=== PATIENT | female | born 1980 | race Caucasian/White ===

== ENCOUNTER 2017-02-13 23:27 | Emergency (ER) | payer OTHER ==
[2017-02-13] MEDS ORDERED: 0.9 % SODIUM CHLORIDE 1,000 ML BAG IV ONE (23:35)
[2017-02-13] MEDS ORDERED: ONDANSETRON HCL IV 4 MG/2 ML VIAL IVP ONE (23:35)
--- NOTE | 2017-02-13 23:41 | Emergency Department Record ---
History of Present Illness - General Chief complaint: Vomiting Stated complaint: VOMITING,THINKS SHES Source: Patient Mode of Arrival: Ambulatory Limitations: No limitations - History of Present Illness Initial comments: 36 yo female presents with nausea and vomiting intermittently for 2 weeks. She is per a home test. She has had two live births in the past. She reports one required a ureteral stent for swelling of a kidney. She had early nausea and vomiting with prior pregnancies as well. She does not know how far along she is at this time. Her prior OB was Dr Espinosa. At times with heavy vomiting she has seen streaks of blood. MD complaint: Nausea, Vomiting -: Week(s) (2) Description of Vomiting: Watery Associated Abdominal Pain: No Radiation: None Severity: Moderate Consistency: Intermittent Improves with: None Worsens with: Eating Context: Other () Associated Symptoms: Denies other symptoms - Related Data Home Medications Medication Instructions Recorded Confirmed Last Taken Bupropion HCl [Bupropion Xl] 150 mg PO BID 02/13/17 02/13/17 02/13/17 Dextroamphetamine/Amphetamine 10 mg PO 1400 02/13/17 02/13/17 02/13/17 [Dextroamp-Amphet ER 10 mg Cap] Dextroamphetamine/Amphetamine 20 mg PO QAM 02/13/17 02/13/17 02/13/17 [Dextroamp-Amphet ER 10 mg Cap] Previous Rx's Medication Instructions Recorded Ondansetron [Zofran Odt] 4 mg PO Q8H #10 tab.rapdis 02/14/17 Ranitidine HCl [Zantac] 150 mg PO DAILY #30 tab 02/14/17 Allergies Allergy/AdvReac Type Severity Reaction Status Date / Time No Known Drug Allergies Allergy Verified 10/17/13 12:28 Review of Systems Constitutional: Denies: Chills, Fever, Malaise, Weakness Eyes: Denies: Eye discharge ENT: Denies: Congestion, Throat pain Respiratory: Denies: Cough Cardiovascular: Denies: Chest pain, Syncope Endocrine: Denies: Fatigue Gastrointestinal: Reports: Hematemesis, Nausea, Vomiting. Denies: Abdominal pain, Diarrhea, Hematochezia, Melena Genitourinary: Denies: Dysuria Musculoskeletal: Denies: Arthralgia, Back pain, Neck pain Skin: Denies: Bruising, Change in color, Rash Neurological: Denies: Headache, Numbness, Weakness Psychiatric: Denies: Anxiety Hematological/Lymphatic: Denies: Blood Clots, Easy bleeding, Easy bruising, Swollen glands Past Medical History - SOCIAL HISTORY Smoking Status: Never smoker - RESPIRATORY Hx Respiratory Disorders: No - CARDIOVASCULAR Hx Cardio Disorders: No - NEURO Hx Neuro Disorders: Yes Comment:: Narcolepsy with out cataplexy - GI Hx GI Disorders: No - Hx Genitourinary Disorders: Yes Hx Kidney Stones: Yes - ENDOCRINE Hx Endocrine Disorders: No - MUSCULOSKELETAL Hx Musculoskeletal Disorders: No - PSYCH Hx Psych Problems: Yes - HEMATOLOGY/ONCOLOGY Hx Hematology/Oncology Disorders: No Family Medical History Hx Cancer: Father, Grandparents Hx Depression: Mother Physical Exam - General General Appearance: Alert, Oriented x3, Cooperative, No acute distress Limitations: No limitations - Head Head exam: Normal inspection - Eye Eye exam: Normal appearance. negative: Conjunctival injection - ENT ENT exam: Normal exam, Mucous membranes moist Ear exam: Normal external inspection Nasal Exam: Normal inspection Mouth exam: Normal external inspection - Neck Neck exam: Normal inspection, Full ROM. negative: Tenderness - Respiratory Respiratory exam: Normal lung sounds bilaterally. negative: Respiratory distress - Cardiovascular Cardiovascular Exam: Regular rate, Normal rhythm, Normal heart sounds - GI/Abdominal GI/Abdominal exam: Soft. negative: Tenderness - Rectal Rectal exam: Deferred - exam: Deferred - Extremities Extremities exam: Normal inspection, Full ROM, Normal capillary refill. negative: Tenderness - Back Back exam: Reports: Normal inspection, Full ROM. Denies: CVA tenderness (R), CVA tenderness (L), Muscle spasm, Tenderness - Neurological Neurological exam: Alert, Normal gait, Oriented X3 - Psychiatric Psychiatric exam: Normal affect, Normal mood - Skin Skin exam: Dry, Intact, Normal color, Warm Course - Reevaluation(s) Reevaluation #1: 02/14/17 00:06 The CBC and the UA were reviewed. No acute changes. 02/14/17 00:27 [place] [address] Bedside US was used to identified a single IUP. heartbeat identified. The patient is doing well. She has an appointment with her PCP Sunday for very close follow up 02/14/17 00:39 She will be placed on Zantac which is safe in She was instructed to discuss her medications that she is currently on with her PCP and Neurologist tomorrow. Medical Decision Making - Lab Data Result diagrams: 02/13/17 23:41 02/13/17 23:41 Disposition Disposition: Discharge Clinical Impression: Hyperemesis gravidarum Disposition: Home, Self-Care Condition: (1) Good Instructions: Hyperemesis Gravidarum (ED) Additional Instructions: Call your doctor tomorrow for close follow up Discuss your current medications with your doctor tomorrow and your neurologist Prescriptions: Ondansetron [Zofran Odt] 4 mg PO Q8H #10 tab.rapdis Ranitidine HCl [Zantac] 150 mg PO DAILY #30 tab Forms: Patient Portal Access Time of Disposition: 00:41 Quality - Quality Measures Quality Measures: N/A - Blood Pressure Screening Does Patient Have Any of the Following: No Blood Pressure Classification: Pre-Hypertensive BP Reading Systolic Measurement: 125 Diastolic Measurement: 88 Screening for High Blood Pressure: < Pre-Hypertensive BP, F/U Documented > [ G8950] Pre-Hypertensive Follow-up Interventions: Referral to alternative/primary care provider.
[2017-02-13 23:52] LABS: BASO % 0.2 % (0-6); EOS % 1.2 % (0-6); GRAN % 63.6 % (47-80); LYMPH % 26.5 % (16-45); MEAN CELL VOLUME 84.7 fl (81-97); MEAN CORPUSCULAR HEMOGLOBIN 29.7 pg (27-33); MEAN CORPUSCULAR HGB CONC 35.1 g/dl (32-36); MEAN PLATELET VOLUME 10.7 fl (7.4-10.4); MONO % 8.5 % (0-9); PLATELET COUNT 238 K/uL (130-400); RED BLOOD COUNT 4.37 M/uL (3.80-5.40); RED CELL DISTRIBUTION WIDTH 12.5 % (11.5-14.5); URINE APPEARANCE CLEAR; URINE BILIRUBIN NEGATIVE (NEGATIVE); URINE BLOOD NEGATIVE (NEGATIVE); URINE COLOR YELLOW; URINE GLUCOSE (UA) NEGATIVE (NEGATIVE); URINE KETONE NEGATIVE (NEGATIVE); URINE LEUKOCYTE ESTERASE NEGATIVE (NEGATIVE); URINE NITRITE NEGATIVE (NEGATIVE); URINE PROTEIN NEGATIVE (NEGATIVE); URINE UROBILINOGEN 0.2 E.U./dL (0.20 - 1.00); WHITE BLOOD COUNT W/O DIFF 10.3 K/uL (4.2-12.2)
[2017-02-14] MEDS ORDERED: RANITIDINE HCL 150 MG TABLET PO STA (00:09)
[2017-02-14 00:14] LABS: BLOOD UREA NITROGEN 15 mg/dL (6-20); CREATININE 0.6 mg/dL (0.5-0.9); EST GLOMERULAR FILTRATION RATE > 60 mL/min
[2017-02-14 00:15] LABS: TOTAL PROTEIN 7.4 g/dL (6.6-8.7)
[2017-02-14 00:17] LABS: GLUCOSE,RANDOM 105 mg/dL (74-109)
[2017-02-14 00:19] LABS: ALB/GLOB RATIO 1.6 (1.1-1.8); ALBUMIN 4.5 g/dL (4.0-5.0); ALT/SGPT 13 U/L (<33); AST/SGOT 14 U/L (10.0-35.0); TOTAL B-hCG 61363 mIU/mL
[2017-02-14 00:20] LABS: ALKALINE PHOSPHATASE 50 U/L (35-104)
== END 2017-02-14 00:48 | disposition home or self-care (01) ==
LOC: ER 23:27
DX: O21.0 Mild hyperemesis gravidarum (principal); Z3A.09 9 weeks gestation of pregnancy
CPT/HCPCS: 99284 ×2; 96374; 96361; 85025; 84702; 80053; 81003; J2405; J7030

== ENCOUNTER 2017-04-04 19:35 | Emergency (ER) | payer OTHER ==
--- NOTE | 2017-04-04 19:59 | Emergency Department Record ---
History of Present Illness - General Chief complaint: Flank Pain Stated complaint: BACK PAIN Time Seen by Provider: 04/04/17 19:45 Source: Patient Mode of Arrival: Ambulatory Limitations: No limitations - History of Present Illness Initial comments: The patient is here due to sharp R flank pain intermittently for the last 2 days. The pain is sometimes worse with movement and does not radiate to the abdomen. She denies any abdominal pain, nausea, vomiting, diarrhea, or any vaginal bleeding. The patient is 16 weeks by dates but has not had an US. Her OB is at [facility] [place]. MD Complaint: Other Onset/Timin -: Days(s) Radiation: R flank Severity: Mild Severity scale (1-10): 7 Quality: Other Consistency: Intermittent Worsens with: Movement LMP Date: 12/01/16 Gestational Age (wks) based on LMP: 17 Associated Symptoms: Denies other symptoms, Nausea/vomiting - Related Data Home Medications Medication Instructions Recorded Confirmed Last Taken Vit Calc,Iron,Folic 1 each PO DAILY 04/04/17 04/04/17 Unknown [ Vitamins] Previous Rx's Medication Instructions Recorded Ondansetron [Zofran Odt] 4 mg PO Q8H #10 tab.rapdis 02/14/17 Ranitidine HCl [Zantac] 150 mg PO DAILY #30 tab 02/14/17 Allergies Allergy/AdvReac Type Severity Reaction Status Date / Time No Known Drug Allergies Allergy Verified 10/17/13 12:28 Travel Screening - Travel/Exposure Within Last 30 Days Have you traveled within the last 30 days?: No - Travel/Exposure Within Last Year Have you traveled outside the [place] in the last year?: No - Additonal Travel Details Have you been exposed to anyone with a communicable illness?: No - Travel Symptoms Symptom Screening: None Review of Systems Constitutional: Denies: Chills, Fever Eyes: Denies: Eye discharge ENT: Denies: Congestion Respiratory: Denies: Cough, Dyspnea Past Medical History - SOCIAL HISTORY Smoking Status: Never smoker Alcohol Use: None Drug Use: None - RESPIRATORY Hx Respiratory Disorders: No - CARDIOVASCULAR Hx Cardio Disorders: No - NEURO Hx Neuro Disorders: Yes Comment:: Narcolepsy with out cataplexy - GI Hx GI Disorders: No - Hx Genitourinary Disorders: Yes Hx Kidney Stones: Yes - ENDOCRINE Hx Endocrine Disorders: No - MUSCULOSKELETAL Hx Musculoskeletal Disorders: No - PSYCH Hx Psych Problems: Yes - HEMATOLOGY/ONCOLOGY Hx Hematology/Oncology Disorders: No Family Medical History Any Significant Family History?: Yes Hx Cancer: Father, Grandparents Hx Depression: Mother Physical Exam - General General Appearance: Alert, Oriented x3, Cooperative, No acute distress - Head Head exam: Atraumatic, Normocephalic, Normal inspection - Eye Eye exam: Normal appearance, PERRL - Neck Neck exam: Normal inspection, Full ROM. negative: Tenderness - Respiratory Respiratory exam: Normal lung sounds bilaterally. negative: Respiratory distress - Cardiovascular Cardiovascular Exam: Regular rate, Normal rhythm, Normal heart sounds - GI/Abdominal GI/Abdominal exam: Soft, Normal bowel sounds. negative: Rebound, Rigid, Tenderness (The abdomen is very soft and nontender.) - Extremities Extremities exam: Normal inspection, Full ROM, Normal capillary refill. negative: Tenderness - Back Back exam: Reports: Normal inspection, Paraspinal tenderness (There is mild tenderness to the R parapspinal area over L 1-3. ). Denies: Vertebral tenderness - Neurological Neurological exam: Alert. negative: Motor sensory deficit Course Vital Signs 04/04/17 19:38 Temperature 98.3 F Pulse Rate 79 Respiratory 20 Rate Blood Pressure 119/81 Pulse Ox 98 - Reevaluation(s) Reevaluation #1: The patient is doing well at this time but is having intermittent R flank pain. I did discuss the need for an US with the patient and the fact we are not able to perform that test. Due to that problem I did discuss the case with Dr. Cadena in the ER at [facility] [place] and she does accept the patient in an ER to ER transfer. The patient understands the plan and will proceed to [facility] [place]. 04/04/17 20:33 Medical Decision Making - Lab Data Result diagrams: 04/04/17 19:57 04/04/17 19:57 Disposition Disposition: Transfer Clinical Impression: Flank pain, acute Disposition: Acute Care Hospital Transfer Transfer To: [facility] [place] Reason For Transfer: US Accepting Physician: Surinder Time Discussed w/Accepting Physician: 21:27 Condition: (2) Stable Instructions: Flank Pain (ED) Additional Instructions: Please proceed directly to the [facility] [place] for further evaluation and testing. Forms: Patient Portal Access Time of Disposition: 20:35 Quality - Quality Measures Quality Measures: N/A - Blood Pressure Screening View Details: Yes Does Patient Have Any of the Following: No Blood Pressure Classification: Pre-Hypertensive BP Reading Systolic Measurement: 119 Diastolic Measurement: 81 Screening for High Blood Pressure: < Pre-Hypertensive BP, F/U Documented > [ G8950] Pre-Hypertensive Follow-up Interventions: Referral to alternative/primary care provider.
[2017-04-04 20:04] LABS: BASO % 0.2 % (0-6); EOS % 1.9 % (0-6); GRAN % 51.9 % (47-80); HEMATOCRIT 33.9 % (35.0-47.0); HEMOGLOBIN 11.7 gm/dl (11.6-16.0); MEAN CELL VOLUME 85.6 fl (81-97); MEAN CORPUSCULAR HEMOGLOBIN 29.5 pg (27-33); MEAN CORPUSCULAR HGB CONC 34.5 g/dl (32-36); MEAN PLATELET VOLUME 10.4 fl (7.4-10.4); PLATELET COUNT 174 K/uL (130-400); RED BLOOD COUNT 3.96 M/uL (3.80-5.40); RED CELL DISTRIBUTION WIDTH 12.7 % (11.5-14.5); URINE APPEARANCE CLEAR; URINE BILIRUBIN NEGATIVE (NEGATIVE); URINE BLOOD NEGATIVE (NEGATIVE); URINE COLOR YELLOW; URINE GLUCOSE (UA) NEGATIVE (NEGATIVE); URINE KETONE NEGATIVE (NEGATIVE); URINE LEUKOCYTE ESTERASE NEGATIVE (NEGATIVE); URINE NITRITE NEGATIVE (NEGATIVE); URINE PROTEIN NEGATIVE (NEGATIVE); URINE UROBILINOGEN 0.2 E.U./dL (0.20 - 1.00); WHITE BLOOD COUNT W/O DIFF 6.4 K/uL (4.2-12.2)
[2017-04-04 20:16] LABS: BLOOD UREA NITROGEN 10 mg/dL (6-20); CREATININE 0.5 mg/dL (0.5-0.9); EST GLOMERULAR FILTRATION RATE > 60 mL/min
[2017-04-04 20:19] LABS: GLUCOSE,RANDOM 99 mg/dL (74-109)
== END 2017-04-04 20:38 | disposition short-term general hospital (02) ==
LOC: ER 19:35
DX: O99.89 Other specified diseases and conditions complicating pregnancy, childbirth and the puerperium (principal); R10.31 Right lower quadrant pain; M54.5 Low back pain; R11.2 Nausea with vomiting, unspecified; Z3A.16 16 weeks gestation of pregnancy
CPT/HCPCS: 80048; 81003; 84702; 85025; 99284

== ENCOUNTER 2018-01-17 07:08 | Day surgery (SDC) | payer OTHER ==
[~2018-01-17 07:08] MED LIST: ACETAMINOPHEN 1,000 MG/100 ML BTL IV ONE
[2018-01-17] MEDS ORDERED: PROPOFOL 10 MG/ML VIAL IV ONE (07:09)
[2018-01-17] MEDS ORDERED: FENTANYL PF 100MCG/2ML VIAL IV ONE (07:09)
[2018-01-17] MEDS ORDERED: LIDOCAINE 2% MDV (20MG/ML) 20ML VIAL IV ONE (07:09)
[2018-01-17] MEDS ORDERED: MIDAZOLAM HCL 2MG/2ML VIAL IV ONE (07:09)
[2018-01-17] MEDS ORDERED: LIDOCAINE 1% MDV (10MG/ML) 20ML VIAL SQ ONE (07:09)
--- NOTE | 2018-01-18 08:00 | Operative Note ---
DATE OF SURGERY: 01/17/2018 Surgeon: Kit Brandon DO PREOPERATIVE DIAGNOSIS: Trigger thumb, right thumb. POSTOPERATIVE DIAGNOSIS: Trigger thumb, right thumb. OPERATION: Tenotomy A1 gal, right thumb, using 3.5 loop magnification. DESCRIPTION OF PROCEDURE: This 37-year-old female was taken to the operating room and placed in the supine position on the operating room table. Assisted local anesthesia was used, 1% Xylocaine plain was used as a local anesthetic. After satisfactory anesthetic, a transverse incision was made in the flexor crease of the MCP joint of the right thumb. Dissection carried down through the skin and subcutaneous tissue. Hemostasis obtained with the electrocautery. The radial digital nerve was identified, gently retracted, and the proximal edge of the A1 gal was easily identified. This was then incised from proximal to distal under direct vision. A nodularity in the FPL was noted but the tendon itself was otherwise unremarkable. No breaks in the continuity of the tendon were identified. Once the tendon had been completely released, there was no catching or snapping of the tendon, and the wound was irrigated with lactated Ringer's solution. The wound closed with interrupted 6-0 nylon suture. Sterile dressings were applied and the patient taken to the recovery room in satisfactory condition. GROSS PATHOLOGY: Some nodularity in the FPL of the right thumb catching on the A1 gal which was incised as described above. CC: Nia ALMEIDA
== END 2018-01-17 09:45 | disposition home or self-care (01) ==
LOC: SUR 07:08
PROVIDERS: ATTEND Orthopaedic Surgery
DX: M65.311 Trigger thumb, right thumb (principal); G47.419 Narcolepsy without cataplexy
CPT/HCPCS: 26055; 01810; 81025; J3010

== ENCOUNTER 2018-12-05 20:38 | Emergency (ER) | payer OTHER ==
--- NOTE | 2018-12-05 20:47 | Emergency Department Record ---
History of Present Illness - General Chief Complaint: Chest Pain Stated Complaint: CHEST PAINS Time Seen by Provider: 12/05/18 20:40 Source: Patient Mode of Arrival: Ambulatory Limitations: No limitations - History of Present Illness Initial Comments: 38 yo female presents to ED for evaluation of "sharp" chest pain symptoms that began this morning upon getting her child ready for school. Patient reports (2) other episodes throughout the day, non-exertional in nature, and lasting approximately 10 minutes in duration. Patient denies calf pain/swelling, history of DVT or recent immobilization. Patient denies fever, chills, or cough symptoms. Patient denies health problems at her baseline. MD Complaint: Chest pain Onset/Timin -: Hour(s) Onset: Awoke with symptoms Pain Location: Substernal Pain Radiation: None Severity: Mild Severity scale (1-10): 1 Quality: Sharp Consistency: Intermittent, Now resolved Improves With: Nothing Worsens With: Nothing Treatments Prior to Arrival: None - Related Data Home Medications Medication Instructions Recorded Confirmed Last Taken Methylphenidate HCl [Concerta] 36 mg PO DAILY 12/05/18 12/05/18 12/05/18 Methylphenidate HCl [Ritalin] 1 tab PO DAILY 12/05/18 12/05/18 12/05/18 Allergies Allergy/AdvReac Type Severity Reaction Status Date / Time No Known Drug Allergies Allergy Verified 10/17/13 12:28 Travel Screening - Travel/Exposure Within Last 30 Days Have you traveled within the last 30 days?: No - Travel/Exposure Within Last Year Have you traveled outside the [place] in the last year?: No - Additonal Travel Details Have you been exposed to anyone with a communicable illness?: No - Travel Symptoms Symptom Screening: None Review of Systems Constitutional: Denies: Chills, Fever, Malaise, Night sweats Eyes: Denies: Eye discharge, Eye pain ENT: Denies: Congestion, Ear pain, Epistaxis Respiratory: Denies: Cough, Dyspnea Cardiovascular: Reports: Chest pain. Denies: Dyspnea on exertion, Edema, Palpitations Endocrine: Denies: Fatigue, Heat or cold intolerance Gastrointestinal: Denies: Abdominal pain, Nausea, Vomiting Genitourinary: Denies: Incontinence, Retention Musculoskeletal: Denies: Arthralgia, Back pain Skin: Denies: Bruising, Change in color Neurological: Denies: Abnormal gait, Confusion, Headache Psychiatric: Denies: Anxiety Hematological/Lymphatic: Denies: Anemia, Blood Clots Past Medical History - SOCIAL HISTORY Smoking Status: Never smoker Alcohol Use: None Drug Use: None - RESPIRATORY Hx Respiratory Disorders: No - CARDIOVASCULAR Hx Cardio Disorders: No - NEURO Hx Neuro Disorders: Yes Comment:: Narcolepsy with out cataplexy - GI Hx GI Disorders: No - Hx Genitourinary Disorders: Yes Hx Kidney Stones: Yes (hx lithotripsy 2011) Comment:: pt has 3 month old no period since - ENDOCRINE Hx Endocrine Disorders: No - MUSCULOSKELETAL Hx Musculoskeletal Disorders: Yes Hx Arthritis: Yes (left shoulder) Comment:: rt trigger thumb sticks - PSYCH Hx Psych Problems: No - HEMATOLOGY/ONCOLOGY Hx Hematology/Oncology Disorders: No Family Medical History Any Significant Family History?: Yes Hx Cancer: Father, Grandparents Hx Depression: Mother Hx Heart Disease: Father Physical Exam - General General Appearance: Alert, Oriented x3, Cooperative, Mild distress Limitations: No limitations - Head Head exam: Atraumatic, Normocephalic, Normal inspection Head exam detail: negative: Abrasion, Contusion, Orr's sign, General tenderness, Hematoma, Laceration - Eye Eye exam: Normal appearance. negative: Conjunctival injection, Periorbital swelling, Periorbital tenderness, Scleral icterus - ENT Ear exam: negative: Auricular hematoma, Auricular trauma Nasal Exam: negative: Active bleeding, Discharge, Dried blood, Foreign body Mouth exam: negative: Drooling, Laceration, Muffled voice, Tongue elevation - Neck Neck exam: Normal inspection. negative: Meningismus, Tenderness - Respiratory Respiratory exam: Normal lung sounds bilaterally. negative: Respiratory distress, Rhonchi, Stridor, Wheezes - Cardiovascular Cardiovascular Exam: Regular rate, Normal rhythm, Normal heart sounds - GI/Abdominal GI/Abdominal exam: Soft. negative: Distended, Rebound, Rigid, Tenderness - Rectal Rectal exam: Deferred - exam: Deferred - Extremities Extremities exam: Normal inspection. negative: Pedal edema, Tenderness - Back Back exam: Denies: CVA tenderness (R), CVA tenderness (L) - Neurological Neurological exam: Alert, Normal gait, Oriented X3 - Psychiatric Psychiatric exam: Normal affect, Normal mood - Skin Skin exam: Normal color. negative: Abrasion Type of lesion: negative: abrasion Course Vital Signs 12/05/18 20:39 Temperature 98.7 F Pulse Rate 67 Respiratory 18 Rate Blood Pressure 150/104 Pulse Ox 99 - Reevaluation(s) Reevaluation #1: 12/05/18 20:47 EKG: NSR 74 Normal axis, normal intervals No acute ST-T wave changes Reevaluation #2: 12/05/18 21:30 Laboratory studies were reviewed and appear grossly unremarkable for an acute process. The patient was deemed to be low-risk for cardiac disease based on the patients history and evaluation in the ED, HEART Score was applied and found to be 0. As a result, repeat Troponin in 3-hours appears appropriate and if negative for myocardial injury, the patient may be discharged home with appropriate outpatient follow-up for further evaluation. D-Dimer negative as well. CXR ordered for further evaluation. Reevaluation #3: 12/05/18 22:12 CXR: Negative 12/05/18 23:02 Patient was reassessed, updated on all results, and is resting comfortably at this time. Reevaluation #4: 12/06/18 00:24 Repeat Troponin is negative for myocardial injury. Patient was updated on all results, appears stable for discharge at this tgime. Medical Decision Making - Lab Data Result diagrams: 12/05/18 20:55 12/05/18 20:55 Disposition Disposition: Discharge Clinical Impression: Atypical chest pain Disposition: Home, Self-Care Condition: (2) Stable Instructions: Chest Pain (ED) Additional Instructions: Return to ED if your symptoms worsen or if you have any concerns. Follow-up with your family doctor in 3-5 days as directed. Forms: Patient Portal Access Time of Disposition: 00:25 Quality - Quality Measures Quality Measures: N/A - Blood Pressure Screening Does Patient Have Any of the Following: No Blood Pressure Classification: Hypertensive Reading Systolic Measurement: 150 Diastolic Measurement: 104 Screening for High Blood Pressure: < First Hypertensive BP, F/U Documented > [G8950] First Hypertensive Follow-up Interventions: Referral to alternative/primary care provider.
[2018-12-05 21:11] LABS: ABSOLUTE NEUTROPHIL COUNT 3.75; BASO % 0.3 % (0-6); GRAN % 53.1 % (47-80); HEMATOCRIT 38.7 % (35.0-47.0); HEMOGLOBIN 13.3 gm/dl (11.6-16.0); LYMPH % 38.4 % (16-45); MEAN CELL VOLUME 86.6 fl (81-97); MEAN CORPUSCULAR HEMOGLOBIN 29.8 pg (27-33); MEAN CORPUSCULAR HGB CONC 34.4 g/dl (32-36); MEAN PLATELET VOLUME 11.2 fl (7.4-10.4); MONO % 7.2 % (0-9); PLATELET COUNT 233 K/uL (130-400); RED BLOOD COUNT 4.47 M/uL (3.80-5.40); RED CELL DISTRIBUTION WIDTH 12.2 % (11.5-14.5); WHITE BLOOD COUNT W/O DIFF 7.1 K/uL (4.2-12.2)
[2018-12-05 21:18] LABS: BLOOD UREA NITROGEN 14 mg/dL (6-20); CREATININE 0.6 mg/dL (0.5-0.9); EST GLOMERULAR FILTRATION RATE > 60 mL/min
[2018-12-05 21:19] LABS: TOTAL PROTEIN 6.8 g/dL (6.6-8.7)
[2018-12-05 21:21] LABS: GLUCOSE,RANDOM 126 mg/dL (74-109)
[2018-12-05 21:24] LABS: ALB/GLOB RATIO 2.1 (1.1-1.8); ALBUMIN 4.6 g/dL (4.0-5.0); ALKALINE PHOSPHATASE 42 U/L (35-104); ALT/SGPT 15 U/L (<33); AST/SGOT 14 U/L (10.0-35.0)
--- NOTE | 2018-12-07 21:44 | RADIOLOGY REPORT ---
EXAM: CHEST 2 VIEWS HISTORY: FOUR EPISODES OF CHEST PAIN. TECHNIQUE: Two views of the chest are provided without comparison examinations. FINDINGS: The cardiomediastinal silhouette is within normal limits for size and contour. Domonique appear unremarkable. There is no radiographic evidence of a focal infiltrate, pleural effusion, or pneumothorax. Mild dextroconvex scoliosis of the upper thoracic spine is noted. IMPRESSION: NO RADIOGRAPHIC EVIDENCE OF AN ACUTE INTRATHORACIC PROCESS. JOB NUMBER: [id number] [facility]
== END 2018-12-06 00:33 | disposition home or self-care (01) ==
LOC: ER 20:38
DX: R07.9 Chest pain, unspecified (principal)
CPT/HCPCS: 71046; 80053; 84484; 85025; 85379; 93005; 93010; 99284